=== PATIENT | male | born 1985 | race Caucasian/White ===

== ENCOUNTER 2016-08-23 18:19 | Emergency (ER) | payer MEDICAID ==
[~2016-08-23] VITALS: Ht 195.6 cm; Wt 102.0 kg
[~2016-08-23 18:19] MED LIST: BUPR100T6 PO; BUPR8TAB SL; FLUO20CA19 PO; LEVO100T PO; LISI-170 PO
[2016-08-23 18:47] VITALS: BP 150/99
[2016-08-23] MEDS ORDERED: ACETAMINOPHEN 325 MG TABLET ONE (19:17)
[2016-08-23] MEDS ORDERED: IBUPROFEN 200 MG TABLET ONE (19:17)
[2016-08-23] MEDS ORDERED: IBUPROFEN 200 MG TABLET PO ONE (19:30)
[2016-08-23] MEDS ORDERED: ACETAMINOPHEN 325 MG TABLET PO ONE (19:30)
== END 2016-08-23 20:15 | disposition home or self-care (01) ==
LOC: ED 20:13
DX: F15.10 Other stimulant abuse, uncomplicated (principal); I10 Essential (primary) hypertension; F19.10 Other psychoactive substance abuse, uncomplicated; F41.1 Generalized anxiety disorder; F32.9 Major depressive disorder, single episode, unspecified
CPT/HCPCS: 99283

== ENCOUNTER 2017-01-03 12:52 | Emergency (ER) | payer MEDICAID ==
[~2017-01-03] VITALS: Ht 182.9 cm; Wt 112.7 kg
[2017-01-03 12:55] VITALS: BP 148/93
[2017-01-03] MEDS ORDERED: GABA600T2 PO (13:13)
== END 2017-01-03 14:07 | disposition home or self-care (01) ==
LOC: ED 13:58
DX: R11.2 Nausea with vomiting, unspecified (principal); R50.9 Fever, unspecified
CPT/HCPCS: 99281

== ENCOUNTER 2017-01-16 14:32 | Emergency (ER) | payer MEDICAID ==
[~2017-01-16] VITALS: Ht 195.6 cm; Wt 113.6 kg
[~2017-01-16 14:32] MED LIST changes: +GABA600T2 PO
[2017-01-16 14:35] VITALS: BP 144/97
== END 2017-01-16 15:35 | disposition home or self-care (01) ==
LOC: ED 15:15
DX: F32.9 Major depressive disorder, single episode, unspecified (principal); F41.9 Anxiety disorder, unspecified; G62.9 Polyneuropathy, unspecified; I10 Essential (primary) hypertension; Z76.0 Encounter for issue of repeat prescription
CPT/HCPCS: 99283

== ENCOUNTER 2017-01-27 15:01 | Emergency (ER) | payer MEDICAID ==
[~2017-01-27] VITALS: Ht 193 cm; Wt 111.7 kg
[2017-01-27 15:03] VITALS: BP 146/87
== END 2017-01-27 15:32 | disposition home or self-care (01) ==
LOC: ED 15:29
DX: Z76.0 Encounter for issue of repeat prescription (principal); I10 Essential (primary) hypertension; G62.9 Polyneuropathy, unspecified
CPT/HCPCS: 99283

== ENCOUNTER 2017-06-16 18:49 | Emergency (ER) | payer SELFPAY ==
[~2017-06-16] VITALS: Ht 195.6 cm; Wt 108.7 kg
[2017-06-16 18:54] VITALS: BP 169/122
== END 2017-06-16 21:31 | disposition home or self-care (01) ==
LOC: ED 21:25
DX: F15.10 Other stimulant abuse, uncomplicated (principal); K64.4 Residual hemorrhoidal skin tags; I10 Essential (primary) hypertension; F41.9 Anxiety disorder, unspecified
CPT/HCPCS: 99283; Q0177

== ENCOUNTER 2017-07-13 13:54 | Inpatient (IN) | payer MEDICAID, OTHER ==
[~2017-07-13] VITALS: Ht 195.6 cm; Wt 102.5 kg
[2017-07-13 14:45] LABS: BASOPHILS # (AUTO) 0.05 x10^3/uL (0-0.1); BASOPHILS % (AUTO) 1 % (0-1); EOSINOPHILS # (AUTO) 0.05 x10^3/uL (0-0.4); EOSINOPHILS % (AUTO) 1 % (1-7); LYMPHOCYTES # (AUTO) 2.74 x10^3/uL (1-3.4); LYMPHOCYTES % (AUTO) 29 % (22-44); MD NO; MEAN CORPUSCULAR HEMOGLOBIN 31.8 pg (27.5-34.5); MEAN CORPUSCULAR HGB CONC 33.6 g/dL (33.2-36.2); MEAN CORPUSCULAR VOLUME 94.7 fL (81-97); MEAN PLATELET VOLUME 7.7 fL (7.4-10.4); MONOCYTES # (AUTO) 0.63 x10^3/uL (0.2-0.8); MONOCYTES % (AUTO) 7 % (2-9); NEUTROPHILS # (AUTO) 5.88 x10^3/uL (1.8-6.8); NEUTROPHILS % (AUTO) 63 % (42-75); PLATELET COUNT 476 x10^3/uL (130-400); RED BLOOD COUNT 4.79 x10^6/uL (4.38-5.82); RED CELL DISTRIBUTION WIDTH 14.3 % (9.4-14.8)
[2017-07-13 14:59] LABS: ALBUMIN 4.2 g/dL (3.4-5.0); ANION GAP 10 mmol/L (5-15); CALCIUM 8.8 mg/dL (8.5-10.1); CHLORIDE 99 mmol/L (98-107)
[2017-07-13 15:02] LABS: SALICYLATE LEVEL < 1.7 mg/dL (2.8-20.0)
[2017-07-13 15:03] LABS: ACETAMINOPHEN < 2 mcg/mL (10-30); ALANINE AMINOTRANSFERASE 30 U/L (12-78); ALKALINE PHOSPHATASE 70 U/L (45-117); BILIRUBIN,TOTAL 0.4 mg/dL (0.2-1.0); CREATININE 0.87 mg/dL (0.7-1.3); TOTAL PROTEIN 8.9 g/dL (6.4-8.2)
[2017-07-13 16:01] LABS: AMPHETAMINE SCREEN, URINE Positive (Negative); BARBITURATE SCREEN, URINE Negative (Negative); BENZODIAZEPINE SCREEN, URINE Negative (Negative); CANNABINOID SCREEN, URINE Negative (Negative); COCAINE SCREEN, URINE Negative (Negative); METHADONE SCREEN, URINE Negative (Negative); OPIATE SCREEN, URINE Positive (Negative)
[2017-07-14] MEDS ORDERED: LORazepam 1MG TABLET ONE (11:03)
[2017-07-14] MEDS ORDERED: NICOTINE 21 MG/24 HR PATCH.TD24 ONE (11:03)
[2017-07-14] MEDS: NICOTINE 21 MG/24 HR PATCH.TD24 TD SCH (11:10)
[2017-07-14] MEDS ORDERED: LORazepam 1MG TABLET PO ONE (11:30)
[2017-07-14] MEDS ORDERED: TEMAZEPAM 15 MG CAPSULE PO PRN (12:00)
[2017-07-14] MEDS ORDERED: ONDANSETRON 2MG/ML, 2ML IVPush PRN (12:00)
[2017-07-14] MEDS ORDERED: GUAIFENESIN/DM 200-20MG, 10ML UDC PO PRN (12:00)
[2017-07-14] MEDS ORDERED: LORazepam 2 MG/ML, 1ML IV PRN ×2 (12:00)
[2017-07-14] MEDS ORDERED: hydrALAzine 20 MG/ML, 1ML IVPush PRN (12:00)
[2017-07-14] MEDS ORDERED: DOCUSATE 100 MG CAPSULE PO PRN (12:00)
[2017-07-14] MEDS ORDERED: LORazepam 0.5MG TABLET PO PRN (12:00)
[2017-07-14] MEDS ORDERED: LORazepam 1MG TABLET PO PRN (12:00)
[2017-07-14] MEDS ORDERED: LISINOPRIL 20 MG TABLET ONE (12:14)
[2017-07-14] MEDS: LISINOPRIL 20 MG TABLET PO SCH (12:33)
[2017-07-14] MEDS ORDERED: LORazepam 2 MG/ML, 1ML ONE ×2 (14:19→20:57)
[2017-07-14] MEDS ORDERED: ENOXAPARIN 40 MG/0.4 ML ONE (14:20)
[2017-07-14] MEDS: ENOXAPARIN 40 MG/0.4 ML SQ SCH (14:23)
[2017-07-14] MEDS: LORazepam 2 MG/ML, 1ML IV PRN ×3 (14:24→22:07)
[2017-07-14] MEDS: POTASSIUM CHLORIDE 20 MEQ, MAGNESIUM SULFATE 2 GM, THIAMINE 100 MG, MVI ADULT 10 ML, FO... IV SCH (14:24)
[2017-07-14] MEDS: FLUOXETINE HCL 20 MG CAPSULE PO SCH ×2 (14:25→22:07)
[2017-07-14 21:18] VITALS: BP 136/87
[2017-07-14 21:27] VITALS: BP 136/87
[2017-07-15 00:59] VITALS: BP 136/81
[2017-07-15] MEDS: LORazepam 2 MG/ML, 1ML IV PRN (02:53)
[2017-07-15 05:16] LABS: BASOPHILS # (AUTO) 0.03 x10^3/uL (0-0.1); BASOPHILS % (AUTO) 0 % (0-1); EOSINOPHILS # (AUTO) 0.02 x10^3/uL (0-0.4); EOSINOPHILS % (AUTO) 0 % (1-7); LYMPHOCYTES # (AUTO) 1.59 x10^3/uL (1-3.4); LYMPHOCYTES % (AUTO) 18 % (22-44); MD NO; MEAN CORPUSCULAR HGB CONC 33.9 g/dL (33.2-36.2); MEAN CORPUSCULAR VOLUME 94.4 fL (81-97); MEAN PLATELET VOLUME 7.9 fL (7.4-10.4); MONOCYTES # (AUTO) 0.87 x10^3/uL (0.2-0.8); MONOCYTES % (AUTO) 10 % (2-9); NEUTROPHILS % (AUTO) 71 % (42-75); PLATELET COUNT 427 x10^3/uL (130-400); RED CELL DISTRIBUTION WIDTH 14.1 % (9.4-14.8)
[2017-07-15 05:26] LABS: ALBUMIN 3.2 g/dL (3.4-5.0); ANION GAP 11 mmol/L (5-15); CALCIUM 8.5 mg/dL (8.5-10.1); CHLORIDE 109 mmol/L (98-107)
[2017-07-15 05:29] LABS: ALANINE AMINOTRANSFERASE 22 U/L (12-78); ALKALINE PHOSPHATASE 55 U/L (45-117); BILIRUBIN,TOTAL 0.4 mg/dL (0.2-1.0); CREATININE 0.84 mg/dL (0.7-1.3); TOTAL PROTEIN 7.2 g/dL (6.4-8.2)
[2017-07-15 08:21] VITALS: BP 132/87
[2017-07-15] MEDS: LEVOTHYROXINE 100 MCG TABLET PO SCH (09:06)
[2017-07-15] MEDS: NICOTINE 21 MG/24 HR PATCH.TD24 TD SCH (09:07)
[2017-07-15] MEDS: FLUOXETINE HCL 20 MG CAPSULE PO SCH ×2 (09:07→20:34)
[2017-07-15] MEDS: CHLORDIAZEPOXIDE 25 MG CAPSULE PO SCH ×3 (09:07→20:33)
[2017-07-15] MEDS: LISINOPRIL 20 MG TABLET PO SCH (09:07)
[2017-07-15] MEDS ORDERED: BUPR300T49 PO (09:20)
[2017-07-15] MEDS ORDERED: GABA600T2 PO (09:20)
[2017-07-15 10:40] VITALS: BP 121/81
[2017-07-15] MEDS: LORazepam 2 MG/ML, 1ML IVPush PRN ×5 (10:42→20:33)
[2017-07-15 12:38] VITALS: BP 124/64
[2017-07-15] MEDS ORDERED: OXYcodone IR 5MG TABLET PO PRN (14:30)
[2017-07-15] MEDS: GABAPENTIN 300 MG CAPSULE PO SCH ×2 (14:58→20:33)
[2017-07-15] MEDS: ENOXAPARIN 40 MG/0.4 ML SQ SCH (14:59)
[2017-07-15] MEDS: POTASSIUM CHLORIDE 20 MEQ, MAGNESIUM SULFATE 2 GM, THIAMINE 100 MG, MVI ADULT 10 ML, FO... IV SCH (14:59)
[2017-07-15] MEDS ORDERED: ACETAMINOPHEN 325 MG TABLET PO PRN (15:00)
[2017-07-15 20:22] VITALS: BP 151/75
[2017-07-15] MEDS: BUPROPION 100 MG TABLET PO SCH (20:34)
[2017-07-16 02:24] VITALS: BP 135/100
[2017-07-16 08:30] VITALS: BP 128/82
[2017-07-16] MEDS: LEVOTHYROXINE 100 MCG TABLET PO SCH (09:24)
[2017-07-16] MEDS: LISINOPRIL 20 MG TABLET PO SCH (09:24)
[2017-07-16] MEDS: BUPROPION 100 MG TABLET PO SCH ×2 (09:24→20:18)
[2017-07-16] MEDS: CHLORDIAZEPOXIDE 25 MG CAPSULE PO SCH ×2 (09:24→17:14)
[2017-07-16] MEDS: GABAPENTIN 300 MG CAPSULE PO SCH ×3 (09:24→20:18)
[2017-07-16] MEDS: FLUOXETINE HCL 20 MG CAPSULE PO SCH ×2 (09:24→20:18)
[2017-07-16] MEDS: NICOTINE 21 MG/24 HR PATCH.TD24 TD SCH (09:24)
[2017-07-16] MEDS: LORazepam 2 MG/ML, 1ML IVPush PRN ×5 (09:31→23:07)
[2017-07-16 14:30] VITALS: BP 129/80
[2017-07-16] MEDS: POTASSIUM CHLORIDE 20 MEQ, MAGNESIUM SULFATE 2 GM, THIAMINE 100 MG, MVI ADULT 10 ML, FO... IV SCH (14:43)
[2017-07-16] MEDS: ENOXAPARIN 40 MG/0.4 ML SQ SCH (14:44)
[2017-07-16] MEDS ORDERED: BUPRENORPHINE/NALOXONE 2-0.5MG SL ONE (19:30)
[2017-07-16] MEDS ORDERED: BUPRENORPHINE/NALOXONE 8-2MG SL ONE (19:30)
[2017-07-16 19:54] VITALS: BP 132/81
[2017-07-16 21:14] VITALS: BP 127/79
[2017-07-17 02:00] VITALS: BP 158/85
[2017-07-17] MEDS: LEVOTHYROXINE 100 MCG TABLET PO SCH (06:11)
[2017-07-17] MEDS: LORazepam 2 MG/ML, 1ML IVPush PRN ×4 (06:12→21:16)
[2017-07-17 09:50] VITALS: BP 120/73
[2017-07-17] MEDS: NICOTINE 21 MG/24 HR PATCH.TD24 TD SCH (10:00)
[2017-07-17] MEDS: FLUOXETINE HCL 20 MG CAPSULE PO SCH ×2 (10:00→21:16)
[2017-07-17] MEDS: LISINOPRIL 20 MG TABLET PO SCH (10:00)
[2017-07-17] MEDS: BUPROPION 100 MG TABLET PO SCH ×2 (10:00→21:16)
[2017-07-17] MEDS: GABAPENTIN 300 MG CAPSULE PO SCH ×3 (10:00→21:16)
[2017-07-17] MEDS ORDERED: BUPRENORPHINE/NALOXONE 8-2MG SL ONE (15:30)
[2017-07-17] MEDS ORDERED: BUPRENORPHINE/NALOXONE 2-0.5MG SL ONE (16:00)
[2017-07-17] MEDS: ENOXAPARIN 40 MG/0.4 ML SQ SCH (16:17)
[2017-07-17] MEDS: THIAMINE 100MG TABLET PO SCH (16:18)
[2017-07-17] MEDS: FOLIC ACID 1 MG TABLET PO SCH (16:19)
[2017-07-17 16:20] VITALS: BP 128/69
[2017-07-17 20:07] VITALS: BP 114/70
[2017-07-18 01:50] VITALS: BP 117/67
[2017-07-18] MEDS: LORazepam 2 MG/ML, 1ML IVPush PRN ×2 (03:21→09:38)
[2017-07-18] MEDS: LEVOTHYROXINE 100 MCG TABLET PO SCH (04:53)
[2017-07-18 06:50] VITALS: BP 118/76
[2017-07-18] MEDS: FLUOXETINE HCL 20 MG CAPSULE PO SCH ×2 (09:37→20:06)
[2017-07-18] MEDS: GABAPENTIN 300 MG CAPSULE PO SCH ×3 (09:37→20:06)
[2017-07-18] MEDS: BUPROPION 100 MG TABLET PO SCH ×2 (09:37→20:07)
[2017-07-18] MEDS: LISINOPRIL 20 MG TABLET PO SCH (09:38)
[2017-07-18] MEDS: NICOTINE 21 MG/24 HR PATCH.TD24 TD SCH (09:38)
[2017-07-18] MEDS: LORazepam 1MG TABLET PO PRN ×2 (12:48→18:28)
[2017-07-18] MEDS: ENOXAPARIN 40 MG/0.4 ML SQ SCH (14:01)
[2017-07-18] MEDS: FOLIC ACID 1 MG TABLET PO SCH (14:56)
[2017-07-18] MEDS: THIAMINE 100MG TABLET PO SCH (14:56)
[2017-07-18] MEDS ORDERED: BUPRENORPHINE/NALOXONE 2-0.5MG SL SCH (18:00)
[2017-07-18 21:14] VITALS: BP 127/75
[2017-07-18] MEDS: TRAZODONE 50MG TABLET PO PRN (22:04)
[2017-07-19] MEDS: LEVOTHYROXINE 100 MCG TABLET PO SCH (07:00)
[2017-07-19 07:53] VITALS: BP 105/67
[2017-07-19] MEDS: LORazepam 1MG TABLET PO PRN ×3 (08:00→21:03)
[2017-07-19] MEDS: FLUOXETINE HCL 20 MG CAPSULE PO SCH ×2 (08:00→21:03)
[2017-07-19] MEDS: THIAMINE 100MG TABLET PO SCH (08:00)
[2017-07-19] MEDS: FOLIC ACID 1 MG TABLET PO SCH (08:00)
[2017-07-19] MEDS: NICOTINE 21 MG/24 HR PATCH.TD24 TD SCH (08:01)
[2017-07-19] MEDS: GABAPENTIN 300 MG CAPSULE PO SCH ×3 (08:01→21:01)
[2017-07-19] MEDS: BUPROPION 100 MG TABLET PO SCH ×2 (08:01→21:02)
[2017-07-19] MEDS: LISINOPRIL 20 MG TABLET PO SCH (08:01)
[2017-07-19] MEDS ORDERED: BUPRENORPHINE/NALOXONE 2-0.5MG SL SCH (10:00)
[2017-07-19] MEDS: ENOXAPARIN 40 MG/0.4 ML SQ SCH (14:30)
[2017-07-19 21:01] VITALS: BP 138/62
[2017-07-19] MEDS: TRAZODONE 50MG TABLET PO PRN (21:02)
[2017-07-20] MEDS: LORazepam 1MG TABLET PO PRN ×2 (04:52→10:53)
[2017-07-20] MEDS: LEVOTHYROXINE 100 MCG TABLET PO SCH (04:52)
[2017-07-20 08:42] VITALS: BP 118/65
[2017-07-20] MEDS ORDERED: FOLIC ACID 1 MG TABLET PO SCH (09:00)
[2017-07-20] MEDS ORDERED: THIAMINE 100MG TABLET PO SCH (09:00)
[2017-07-20] MEDS: GABAPENTIN 300 MG CAPSULE PO SCH ×2 (09:07→16:35)
[2017-07-20] MEDS: BUPROPION 100 MG TABLET PO SCH (09:07)
[2017-07-20] MEDS: NICOTINE 21 MG/24 HR PATCH.TD24 TD SCH (09:07)
[2017-07-20] MEDS: LISINOPRIL 20 MG TABLET PO SCH (09:08)
[2017-07-20] MEDS: FLUOXETINE HCL 20 MG CAPSULE PO SCH (09:08)
[2017-07-20] MEDS: ENOXAPARIN 40 MG/0.4 ML SQ SCH (14:30)
== END 2017-07-20 18:33 | disposition home or self-care (01) | DRG 897 ==
LOC: ED 17:01 → EDIP 17:49 → OBSVTOIN 07-14 13:01 → 5SO 07-14 22:01 → 4WST 07-16 20:57 → 3E 07-18 10:19
PROVIDERS: ADMIT Hospitalist; ATTEND Hospitalist
PROC: HZ2ZZZZ Detoxification Services for Substance Abuse Treatment (ICD-10-PCS; principal; 2017-07-14)
DX: F10.239 Alcohol dependence with withdrawal, unspecified (principal); F11.23 Opioid dependence with withdrawal; R45.851 Suicidal ideations; R56.9 Unspecified convulsions; E03.9 Hypothyroidism, unspecified; F15.90 Other stimulant use, unspecified, uncomplicated; F17.210 Nicotine dependence, cigarettes, uncomplicated; F32.9 Major depressive disorder, single episode, unspecified; F41.1 Generalized anxiety disorder; I10 Essential (primary) hypertension; Z59.0 Homelessness; Z90.89 Acquired absence of other organs
CPT/HCPCS: 36415; 80053; 80074; 80307; 80329; 83735; 84100; 84443; 85025; 87040; 87806; 93306; 96365; 96366; 96372; G0378; J1650; J2405; J3411; J3475; J3480; J7042; G0475; G0480; J2060

== ENCOUNTER 2018-01-25 04:57 | Emergency (ER) | payer MEDICAID ==
[~2018-01-25] VITALS: Ht 193 cm; Wt 101.0 kg
[~2018-01-25 04:57] MED LIST changes: +BUPR300T49 PO
[2018-01-25 05:00] VITALS: BP 139/72
[2018-01-25] MEDS ORDERED: IBUPROFEN 200 MG TABLET ONE (05:54)
[2018-01-25] MEDS ORDERED: DIPH,PERTUSS(ACELL),TET VAC/PF 0.5 ML IM-VACC ONE ×2 (05:54→06:00)
[2018-01-25] MEDS ORDERED: IBUPROFEN 200 MG TABLET PO ONE (06:00)
[2018-01-25 06:13] LABS: ALANINE AMINOTRANSFERASE 28 U/L (12-78); ALBUMIN 3.9 g/dL (3.4-5.0); ANION GAP 11 mmol/L (5-15); CALCIUM 8.9 mg/dL (8.5-10.1); CHLORIDE 104 mmol/L (98-107); CREATININE 0.92 mg/dL (0.7-1.3)
[2018-01-25 06:15] LABS: ALKALINE PHOSPHATASE 56 U/L (45-117); BILIRUBIN,TOTAL 1.1 mg/dL (0.2-1.0); TOTAL PROTEIN 7.7 g/dL (6.4-8.2)
[2018-01-25] MEDS ORDERED: BACITRACIN ZINC OINT 500U/GM, 0.9 GM ONE (06:17)
== END 2018-01-25 07:14 | disposition home or self-care (01) ==
LOC: ED 07:00
DX: S90.822A Blister (nonthermal), left foot, initial encounter (principal); S90.821A Blister (nonthermal), right foot, initial encounter; L03.115 Cellulitis of right lower limb; L03.116 Cellulitis of left lower limb; F10.20 Alcohol dependence, uncomplicated; I10 Essential (primary) hypertension; Z59.0 Homelessness; X58.XXXA Exposure to other specified factors, initial encounter; Y93.01 Activity, walking, marching and hiking; Y92.488 Other paved roadways as the place of occurrence of the external cause; Y99.8 Other external cause status
CPT/HCPCS: 36415; 80053; 90471; 90715; 99283

== ENCOUNTER 2018-05-28 14:55 | Observation (INO) | payer MEDICAID ==
[~2018-05-28] VITALS: Ht 193 cm; Wt 110.2 kg
[~2018-05-28 14:55] MED LIST changes: -GABA600T2 PO; +GABA600T7 PO
--- NOTE | 2018-05-28 15:11 | NUR ---
PT AMBULATED INDEPENDENTLY TO [facility] SECURED ED ROOM 39, ALL BELONGINGS BEING SECURED & PT CHANGING INTO GOWN. PHLEMBOTOMY AT BEDSIDE TO COLLECT BLOOD, PT TO PROVIDE UA, RN ORDERING MEAL TRAY FOR PT, NO OTHER NEEDS AT THIS TIME, CARIDAD.
--- NOTE | 2018-05-28 15:18 | NUR ---
PT BELONGINGS STORED IN LOCKER; 1 CAMO BACKPACK, 1 TEAL DUFFLE BAG, 3 PT BELONGING BAGS. PT DECLINED HAVING ANYTHING LOCKED UP W/ SECURITY. PT HAS HIS GLASSES WITH HIM.
--- NOTE | 2018-05-28 15:22 | NUR ---
JULIETTE TO LAB AT THIS TIME
[2018-05-28 15:24] LABS: BASOPHILS # (AUTO) 0.03 x10^3/uL (0-0.1); BASOPHILS % (AUTO) 1 % (0-1); EOSINOPHILS # (AUTO) 0.09 x10^3/uL (0-0.4); EOSINOPHILS % (AUTO) 2 % (1-7); LYMPHOCYTES # (AUTO) 1.32 x10^3/uL (1-3.4); LYMPHOCYTES % (AUTO) 24 % (22-44); MD NO; MEAN CORPUSCULAR HEMOGLOBIN 32.5 pg (27.5-34.5); MEAN CORPUSCULAR HGB CONC 34.5 g/dL (33.2-36.2); MEAN CORPUSCULAR VOLUME 94.3 fL (81-97); MEAN PLATELET VOLUME 7.9 fL (7.4-10.4); MONOCYTES # (AUTO) 0.65 x10^3/uL (0.2-0.8); MONOCYTES % (AUTO) 12 % (2-9); NEUTROPHILS # (AUTO) 3.47 x10^3/uL (1.8-6.8); NEUTROPHILS % (AUTO) 62 % (42-75); PLATELET COUNT 325 x10^3/uL (130-400); RED BLOOD COUNT 4.23 x10^6/uL (4.38-5.82); RED CELL DISTRIBUTION WIDTH 14.5 % (9.4-14.8)
[2018-05-28 15:34] LABS: ALANINE AMINOTRANSFERASE 49 U/L (12-78); ALBUMIN 3.5 g/dL (3.4-5.0); ANION GAP 7 mmol/L (5-15); CALCIUM 8.5 mg/dL (8.5-10.1); CHLORIDE 106 mmol/L (98-107)
[2018-05-28 15:36] LABS: ALKALINE PHOSPHATASE 46 U/L (45-117); BILIRUBIN,TOTAL 0.2 mg/dL (0.2-1.0); CREATININE 0.85 mg/dL (0.7-1.3)
[2018-05-28 15:37] LABS: SALICYLATE LEVEL < 1.7 mg/dL (2.8-20.0)
[2018-05-28 15:39] LABS: ACETAMINOPHEN < 2 mcg/mL (10-30)
[2018-05-28 15:44] LABS: AMPHETAMINE SCREEN, URINE Negative (Negative); BARBITURATE SCREEN, URINE Negative (Negative); BENZODIAZEPINE SCREEN, URINE Negative (Negative); CANNABINOID SCREEN, URINE Positive (Negative); COCAINE SCREEN, URINE Negative (Negative); METHADONE SCREEN, URINE Negative (Negative); OPIATE SCREEN, URINE Positive (Negative)
--- NOTE | 2018-05-28 15:50 | NUR ---
PT GIVEN MEAL TRAY, SITTER AT DOORWAY, NAD, NO NEEDS AT THIS TIME
--- NOTE | 2018-05-28 16:35 | NUR ---
REGISTRATION CALLED TO REQUEST FULL REG ON PT FOR TELEPSYCH CONSULT.
--- NOTE | 2018-05-28 17:05 | NUR ---
[facility] called and chart faxed.
--- NOTE | 2018-05-28 18:04 | NUR ---
[facility] has been at bedside to assess pt
[2018-05-28] MEDS ORDERED: ONDANSETRON ODT 4 MG PO PRN (18:30)
[2018-05-28] MEDS ORDERED: ACETAMINOPHEN 325 MG TABLET PO PRN (18:30)
[2018-05-28] MEDS ORDERED: ZIPRASIDONE 20 MG INJ IM PRN (18:30)
[2018-05-28] MEDS ORDERED: DIPHENHYDRAMINE 50 MG CAPSULE PO PRN (18:30)
--- NOTE | 2018-05-28 19:10 | NUR ---
REPORT RECEIVED FROM MALKA DUNN. MEAL TRAY CONSUMED 100%. PT RESTING ON GURNEY, RESPS EVEN AND UNLABORED. . PT DENIES ANY NEEDS. SITTER MONITORING FROM [facility] FOR SAFETY. ROOM SECURE. AWAITING BED ASSIGNMENT AND TRANSPORT TO AT THIS TIME.
--- NOTE | 2018-05-28 19:15 | NUR ---
REPORT TO MARTHA MCNALLY.
--- NOTE | 2018-05-28 19:34 | NUR ---
TASK RN: SI COMPLIANT MEAL TRAY PROVIDED. PT CALM AND COOPERATIVE. ROOM SECURE. SITTER AT DOORWAY FOR OBS
--- NOTE | 2018-05-28 20:01 | NUR ---
REPORT RECEIVED FROM MARTHA MCNALLY.
[2018-05-28] MEDS ORDERED: TRAZ50TA66 PO (20:21)
--- NOTE | 2018-05-28 20:25 | NUR ---
PT UP TO BATHROOM TO VOID, GAIT STEADY. PT BACK TO ROOM. NADN .
--- NOTE | 2018-05-28 20:42 | NUR ---
REPORT CALLED TO Tamanna HEATH PT AWAITING TRANSPORT TO ROOM 262. Addendum: 05/28/18 at 2043 paul POTTER REPORT CALLED TO Tamanna HEATH PT AWAITING TRANSPORT TO ROOM 264.
--- NOTE | 2018-05-28 20:56 | NUR ---
PT TRANSPORTED TO ROOM 264 BY EDT. RICHARDS AT TRANSPORT.
[2018-05-28 21:04] VITALS: BP 146/88
[2018-05-28] MEDS: FLUOXETINE HCL 20 MG CAPSULE PO SCH (21:12)
[2018-05-28] MEDS: GABAPENTIN 300 MG CAPSULE PO SCH (21:12)
[2018-05-29] MEDS: LEVOTHYROXINE 100 MCG TABLET PO SCH (07:57)
[2018-05-29 08:00] VITALS: BP 154/88
[2018-05-29] MEDS ORDERED: LORazepam 0.5MG TABLET PO PRN ×2 (08:00→17:00)
[2018-05-29] MEDS: GABAPENTIN 300 MG CAPSULE PO SCH ×3 (08:11→20:31)
[2018-05-29] MEDS: FLUOXETINE HCL 20 MG CAPSULE PO SCH ×2 (08:12→20:31)
[2018-05-29] MEDS: LISINOPRIL 20 MG TABLET PO SCH (08:12)
[2018-05-29] MEDS: SENNA/DOCUSATE TABLET PO SCH (08:16)
[2018-05-29] MEDS ORDERED: TEMPLATE NON-FORMULARY MED. (Bupropion Hcl** (Wellbutrin Xl**) 300 MG) PO SCH (09:00)
[2018-05-29 17:23] VITALS: BP 145/88
[2018-05-29 19:56] VITALS: BP 144/84
[2018-05-29] MEDS: LORazepam 1MG TABLET PO PRN (20:31)
[2018-05-30] MEDS: LEVOTHYROXINE 100 MCG TABLET PO SCH (06:20)
[2018-05-30 07:00] VITALS: BP 142/92
[2018-05-30] MEDS: LORazepam 1MG TABLET PO PRN ×3 (08:12→21:45)
[2018-05-30] MEDS: LISINOPRIL 20 MG TABLET PO SCH (08:13)
[2018-05-30] MEDS: FLUOXETINE HCL 20 MG CAPSULE PO SCH ×2 (08:13→21:31)
[2018-05-30] MEDS: GABAPENTIN 300 MG CAPSULE PO SCH ×3 (08:14→21:32)
[2018-05-30] MEDS: SENNA/DOCUSATE TABLET PO SCH (08:18)
[2018-05-30] MEDS: BUPROPION SR 150 MG TABLET PO SCH ×2 (10:44→21:32)
[2018-05-30 15:11] VITALS: BP 134/84
[2018-05-30] MEDS: ZIPRASIDONE 20MG CAPSULE PO PRN ×2 (15:13→21:45)
[2018-05-30 19:24] VITALS: BP 134/85
[2018-05-31] MEDS: LEVOTHYROXINE 100 MCG TABLET PO SCH (07:30)
[2018-05-31 07:46] VITALS: BP 136/82
[2018-05-31] MEDS ORDERED: LEVOTHYROXINE 50 MCG TABLET ONE (08:05)
[2018-05-31] MEDS: FLUOXETINE HCL 20 MG CAPSULE PO SCH (08:06)
[2018-05-31] MEDS: GABAPENTIN 300 MG CAPSULE PO SCH ×2 (08:06→15:45)
[2018-05-31] MEDS: LISINOPRIL 20 MG TABLET PO SCH (08:07)
[2018-05-31] MEDS: BUPROPION SR 150 MG TABLET PO SCH (08:07)
[2018-05-31] MEDS: SENNA/DOCUSATE TABLET PO SCH (08:07)
[2018-05-31] MEDS: LORazepam 1MG TABLET PO PRN ×2 (10:14→17:26)
[2018-05-31] MEDS: ZIPRASIDONE 20MG CAPSULE PO PRN (14:10)
== END 2018-05-31 18:10 ==
LOC: ED 16:36 → SUATTDRO 18:24 → EDIP 18:59 → 2N 20:59
PROVIDERS: ADMIT Family Medicine; ATTEND Family Medicine
DX: R45.851 Suicidal ideations (principal); F32.9 Major depressive disorder, single episode, unspecified; I10 Essential (primary) hypertension; E03.9 Hypothyroidism, unspecified; F10.10 Alcohol abuse, uncomplicated; F13.239 Sedative, hypnotic or anxiolytic dependence with withdrawal, unspecified; F41.1 Generalized anxiety disorder
CPT/HCPCS: 36415; 80053; 80307; 80329; 85025; 99284; G0378; Q0177; G0480

== ENCOUNTER 2019-10-04 08:19 | Inpatient (IN) | payer MEDICAID ==
[~2019-10-04] VITALS: Ht 193 cm; Wt 104.6 kg
[~2019-10-04 08:19] MED LIST changes: +TRAZ50TA66 PO
--- NOTE | 2019-10-04 08:52 | NUR ---
PT WITH C/O SWELLING AND PAIN TO LLE INCLUDING FOOT AND CALF. SOME NOTED SWELLING TO R CALF WELL. PT DENIES TRAUMA. PT STATES HE WENT TO [place] RECENTLY AND THEY HAD DONE FILMS, NO FRACTURE NOTED. PT STATES IT HURTS TO WALK AND HE IS HOMELESS SO NEEDS TO BE ABLE TO AMBULATE. 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 CMS INTACT, PT TO BP, CONT PULSE OX
[2019-10-04] MEDS: SODIUM CHLORIDE 0.9% 1,000ML IVBOLUS ONE ×2 (09:30→11:41)
[2019-10-04] MEDS ORDERED: VANCOMYCIN PER PHARMACY MC ONE (09:30)
[2019-10-04] MEDS ORDERED: VANCOMYCIN 2,500 MG in SODIUM CHLORIDE 0.9% 500 ML IV ONE (09:30)
[2019-10-04] MEDS ORDERED: PHARMACY MAY ADJ FOR RENAL FX MC PRN (09:30)
--- NOTE | 2019-10-04 09:30 | NUR ---
PIV INITIATED, BC DRAWN AND SENT TO LAB.
[2019-10-04 09:56] LABS: ALANINE AMINOTRANSFERASE 51 U/L (12-78); ALBUMIN 2.8 g/dL (3.4-5.0); ANION GAP 7 mmol/L (5-15); CALCIUM 8.6 mg/dL (8.5-10.1); CHLORIDE 103 mmol/L (98-107); CREATININE 0.71 mg/dL (0.7-1.3)
[2019-10-04 09:58] LABS: ALKALINE PHOSPHATASE 55 U/L (45-117); BILIRUBIN,TOTAL 0.4 mg/dL (0.2-1.0); TOTAL PROTEIN 7.5 g/dL (6.4-8.2)
[2019-10-04 10:22] LABS: BASOPHILS # (AUTO) 0.07 x10^3/uL (0-0.1); BASOPHILS % (AUTO) 1 % (0-1); EOSINOPHILS # (AUTO) 0.06 x10^3/uL (0-0.4); EOSINOPHILS % (AUTO) 1 % (1-7); LYMPHOCYTES # (AUTO) 1.89 x10^3/uL (1-3.4); LYMPHOCYTES % (AUTO) 20 % (22-44); MD NO; MEAN CORPUSCULAR HEMOGLOBIN 31.2 pg (27.5-34.5); MEAN CORPUSCULAR HGB CONC 33.1 g/dL (33.2-36.2); MEAN CORPUSCULAR VOLUME 94.3 fL (81-97); MEAN PLATELET VOLUME 7.6 fL (7.4-10.4); MONOCYTES # (AUTO) 0.85 x10^3/uL (0.2-0.8); MONOCYTES % (AUTO) 9 % (2-9); NEUTROPHILS # (AUTO) 6.68 x10^3/uL (1.8-6.8); NEUTROPHILS % (AUTO) 70 % (42-75); PLATELET COUNT 267 x10^3/uL (130-400); RED BLOOD COUNT 3.64 x10^6/uL (4.38-5.82); RED CELL DISTRIBUTION WIDTH 12.6 % (9.4-14.8)
[2019-10-04] MEDS ORDERED: AMPICILLIN/SULBACTAM 3 GM in SODIUM CHLORIDE 0.9% 100 ML IV ONE (10:30)
[2019-10-04 12:42] VITALS: BP 153/95
[2019-10-04] MEDS ORDERED: FLUO40CA2 PO (13:10)
[2019-10-04] MEDS: HYDROcodone/APAP 5/325 TABLET PO PRN ×3 (13:14→22:27)
[2019-10-04] MEDS ORDERED: ONDANSETRON ODT 4 MG PO PRN (13:30)
[2019-10-04] MEDS ORDERED: BISACODYL 10 MG SUPP PR PRN (13:30)
[2019-10-04] MEDS ORDERED: ACETAMINOPHEN 325 MG TABLET PO PRN (13:30)
[2019-10-04] MEDS ORDERED: VANCOMYCIN PER PHARMACY MC PRN (13:30)
[2019-10-04] MEDS ORDERED: ONDANSETRON 2MG/ML, 2ML IVPush PRN (13:30)
[2019-10-04] MEDS ORDERED: HYDROmorphone 2 MG/ML, 1ML IVPush PRN (13:30)
[2019-10-04] MEDS ORDERED: hydrALAzine 20 MG/ML, 1ML IVPush PRN (13:30)
[2019-10-04] MEDS ORDERED: POLYETHYLENE GLYCOL 17 GM PACKET PO PRN (13:30)
[2019-10-04] MEDS ORDERED: LORazepam 2 MG/ML, 1ML IV PRN ×2 (13:30)
[2019-10-04] MEDS: LORazepam 2 MG/ML, 1ML IV PRN (14:50)
[2019-10-04] MEDS ORDERED: PHARMACOKINETIC MONITORING MC PRN (15:00)
[2019-10-04] MEDS ORDERED: GADOTERATE 7.5 MMOL/15 ML SYR ONE (15:04)
[2019-10-04] MEDS: LACTATED RINGERS 1,000 ML IV SCH (15:40)
[2019-10-04] MEDS: NICOTINE 14MG/24 HR PATCH.TD24 TD SCH (15:41)
[2019-10-04] MEDS: ENOXAPARIN 40 MG/0.4 ML SQ SCH (15:41)
[2019-10-04] MEDS: LORazepam 0.5MG TABLET PO SCH ×2 (15:41→20:17)
[2019-10-04] MEDS: GABAPENTIN 300 MG CAPSULE PO SCH ×2 (15:42→20:17)
[2019-10-04] MEDS: PIPERACILLIN/TAZO/PMX 3.375GM 50 ML IV SCH ×2 (15:46→21:36)
[2019-10-04] MEDS ORDERED: LORazepam 1MG TABLET PO SCH (16:00)
[2019-10-04 16:33] LABS: HCT (SEDRATE) 37.2 % (39.2-51.8)
[2019-10-04 19:48] VITALS: BP 156/99
[2019-10-04] MEDS: FAMOTIDINE 20 MG TABLET PO SCH (20:17)
[2019-10-04] MEDS: VANCOMYCIN 2,000 MG in SODIUM CHLORIDE 0.9% 500 ML IV SCH (22:18)
[2019-10-05 00:35] VITALS: BP 138/90
[2019-10-05] MEDS: PIPERACILLIN/TAZO/PMX 3.375GM 50 ML IV SCH ×4 (03:12→20:53)
[2019-10-05] MEDS: LEVOTHYROXINE 100 MCG TABLET PO SCH (05:09)
[2019-10-05] MEDS: LORazepam 2 MG/ML, 1ML IV PRN ×4 (05:10→23:25)
[2019-10-05 05:44] LABS: ALBUMIN 2.6 g/dL (3.4-5.0); ANION GAP 7 mmol/L (5-15); CALCIUM 8.5 mg/dL (8.5-10.1); CHLORIDE 111 mmol/L (98-107)
[2019-10-05 05:57] LABS: ALANINE AMINOTRANSFERASE 53 U/L (12-78); ALKALINE PHOSPHATASE 54 U/L (45-117); BILIRUBIN,TOTAL 0.5 mg/dL (0.2-1.0); CREATININE 0.74 mg/dL (0.7-1.3); TOTAL PROTEIN 7.5 g/dL (6.4-8.2)
[2019-10-05 07:45] VITALS: BP 145/88
[2019-10-05 08:03] LABS: MEAN CORPUSCULAR HEMOGLOBIN 31.5 pg (27.5-34.5); MEAN CORPUSCULAR HGB CONC 33.1 g/dL (33.2-36.2); MEAN CORPUSCULAR VOLUME 95.1 fL (81-97); RED BLOOD COUNT 4.11 x10^6/uL (4.38-5.82); RED CELL DISTRIBUTION WIDTH 12.9 % (9.4-14.8)
[2019-10-05 08:04] LABS: MEAN PLATELET VOLUME 6.6 fL (7.4-10.4); PLATELET COUNT 371 x10^3/uL (130-400)
[2019-10-05 08:05] LABS: BASOPHILS # (AUTO) 0.04 x10^3/uL (0-0.1); BASOPHILS % (AUTO) 1 % (0-1); EOSINOPHILS # (AUTO) 0.05 x10^3/uL (0-0.4); EOSINOPHILS % (AUTO) 1 % (1-7); LYMPHOCYTES # (AUTO) 1.36 x10^3/uL (1-3.4); LYMPHOCYTES % (AUTO) 19 % (22-44); MD SCAN; MONOCYTES # (AUTO) 0.67 x10^3/uL (0.2-0.8); MONOCYTES % (AUTO) 9 % (2-9); NEUTROPHILS # (AUTO) 5.23 x10^3/uL (1.8-6.8); NEUTROPHILS % (AUTO) 71 % (42-75)
[2019-10-05] MEDS: BUPROPION SR 150 MG TABLET PO SCH (09:11)
[2019-10-05] MEDS: LISINOPRIL 10 MG TABLET PO SCH (09:11)
[2019-10-05] MEDS: FLUOXETINE HCL 20 MG CAPSULE PO SCH (09:11)
[2019-10-05] MEDS: GABAPENTIN 300 MG CAPSULE PO SCH ×3 (09:11→20:53)
[2019-10-05] MEDS: MULTIVITAMINS/MINERALS TABLET PO SCH (09:12)
[2019-10-05] MEDS: SENNA/DOCUSATE TABLET PO SCH (09:12)
[2019-10-05] MEDS: FAMOTIDINE 20 MG TABLET PO SCH ×2 (09:12→20:54)
[2019-10-05] MEDS: LORazepam 0.5MG TABLET PO SCH ×3 (09:12→20:53)
[2019-10-05] MEDS: LACTATED RINGERS 1,000 ML IV SCH (11:24)
[2019-10-05] MEDS: VANCOMYCIN 2,000 MG in SODIUM CHLORIDE 0.9% 500 ML IV SCH ×2 (11:24→23:25)
[2019-10-05 14:20] VITALS: BP 147/86
[2019-10-05] MEDS: FOLIC ACID 1 MG TABLET PO SCH (16:00)
[2019-10-05] MEDS: NICOTINE 14MG/24 HR PATCH.TD24 TD SCH (16:00)
[2019-10-05] MEDS: THIAMINE 100MG TABLET PO SCH (16:00)
[2019-10-05] MEDS: ENOXAPARIN 40 MG/0.4 ML SQ SCH (16:01)
[2019-10-05] MEDS: HYDROcodone/APAP 5/325 TABLET PO PRN ×2 (16:08→22:36)
[2019-10-05 19:13] LABS: AMPHETAMINE SCREEN, URINE Positive (Negative); BARBITURATE SCREEN, URINE Negative (Negative); BENZODIAZEPINE SCREEN, URINE Negative (Negative); CANNABINOID SCREEN, URINE Positive (Negative); COCAINE SCREEN, URINE Negative (Negative); METHADONE SCREEN, URINE Negative (Negative); OPIATE SCREEN, URINE Positive (Negative)
[2019-10-05 20:08] VITALS: BP 150/87
[2019-10-05] MEDS: TRAZODONE 50MG TABLET PO PRN (20:54)
[2019-10-06] VITALS (10 sets, daily range): BP systolic 139–165; BP diastolic 87–108
--- NOTE | 2019-10-06 02:02 | NUR ---
SADI BENNETT - Fall Risk Medication(s) present and receiving anticoagulants.
[2019-10-06] MEDS: LORazepam 2 MG/ML, 1ML IV PRN ×2 (02:17→06:00)
[2019-10-06] MEDS: HYDROcodone/APAP 5/325 TABLET PO PRN ×4 (02:18→21:02)
[2019-10-06] MEDS: PIPERACILLIN/TAZO/PMX 3.375GM 50 ML IV SCH ×4 (03:49→21:02)
[2019-10-06] MEDS: LEVOTHYROXINE 100 MCG TABLET PO SCH (06:00)
[2019-10-06 07:33] LABS: ANION GAP 5 mmol/L (5-15); CALCIUM 8.6 mg/dL (8.5-10.1); CHLORIDE 111 mmol/L (98-107); CREATININE 0.91 mg/dL (0.7-1.3)
[2019-10-06] MEDS: MULTIVITAMINS/MINERALS TABLET PO SCH (09:27)
[2019-10-06] MEDS: BUPROPION SR 150 MG TABLET PO SCH (09:27)
[2019-10-06] MEDS: FAMOTIDINE 20 MG TABLET PO SCH ×2 (09:27→21:02)
[2019-10-06] MEDS: FOLIC ACID 1 MG TABLET PO SCH (09:27)
[2019-10-06] MEDS: FLUOXETINE HCL 20 MG CAPSULE PO SCH (09:27)
[2019-10-06] MEDS: LORazepam 0.5MG TABLET PO SCH ×3 (09:27→21:02)
[2019-10-06] MEDS: GABAPENTIN 300 MG CAPSULE PO SCH ×3 (09:27→21:02)
[2019-10-06] MEDS: LISINOPRIL 10 MG TABLET PO SCH (09:28)
[2019-10-06] MEDS: SENNA/DOCUSATE TABLET PO SCH (09:28)
[2019-10-06] MEDS: THIAMINE 100MG TABLET PO SCH (09:28)
[2019-10-06 09:56] LABS: BASOPHILS # (AUTO) 0.05 x10^3/uL (0-0.1); BASOPHILS % (AUTO) 1 % (0-1); EOSINOPHILS # (AUTO) 0.01 x10^3/uL (0-0.4); EOSINOPHILS % (AUTO) 0 % (1-7); LYMPHOCYTES # (AUTO) 1.51 x10^3/uL (1-3.4); LYMPHOCYTES % (AUTO) 15 % (22-44); MD NO; MEAN CORPUSCULAR HEMOGLOBIN 31.5 pg (27.5-34.5); MEAN CORPUSCULAR HGB CONC 33.3 g/dL (33.2-36.2); MEAN CORPUSCULAR VOLUME 94.7 fL (81-97); MEAN PLATELET VOLUME 6.8 fL (7.4-10.4); MONOCYTES # (AUTO) 0.73 x10^3/uL (0.2-0.8); MONOCYTES % (AUTO) 7 % (2-9); NEUTROPHILS # (AUTO) 8.09 x10^3/uL (1.8-6.8); NEUTROPHILS % (AUTO) 78 % (42-75); PLATELET COUNT 551 x10^3/uL (130-400); RED BLOOD COUNT 4.08 x10^6/uL (4.38-5.82)
[2019-10-06] MEDS: VANCOMYCIN 2,000 MG in SODIUM CHLORIDE 0.9% 500 ML IV SCH ×2 (11:25→23:37)
[2019-10-06] MEDS: ENOXAPARIN 40 MG/0.4 ML SQ SCH (15:51)
[2019-10-06] MEDS: NICOTINE 14MG/24 HR PATCH.TD24 TD SCH (15:52)
[2019-10-06] MEDS: TRAZODONE 50MG TABLET PO PRN (21:07)
[2019-10-07 01:34] VITALS: BP 154/101
[2019-10-07] MEDS: PIPERACILLIN/TAZO/PMX 3.375GM 50 ML IV SCH ×3 (03:28→16:05)
[2019-10-07 05:15] LABS: BASOPHILS # (AUTO) 0.04 x10^3/uL (0-0.1); BASOPHILS % (AUTO) 0 % (0-1); EOSINOPHILS # (AUTO) 0.08 x10^3/uL (0-0.4); EOSINOPHILS % (AUTO) 1 % (1-7); LYMPHOCYTES % (AUTO) 22 % (22-44); MD NO; MEAN CORPUSCULAR HEMOGLOBIN 31.2 pg (27.5-34.5); MEAN CORPUSCULAR VOLUME 94.5 fL (81-97); MEAN PLATELET VOLUME 7.8 fL (7.4-10.4); MONOCYTES # (AUTO) 0.86 x10^3/uL (0.2-0.8); MONOCYTES % (AUTO) 8 % (2-9); NEUTROPHILS # (AUTO) 7.01 x10^3/uL (1.8-6.8); NEUTROPHILS % (AUTO) 69 % (42-75); RED BLOOD COUNT 4.15 x10^6/uL (4.38-5.82); RED CELL DISTRIBUTION WIDTH 12.9 % (9.4-14.8)
[2019-10-07 05:22] LABS: HCT (SEDRATE) 39.2 % (39.2-51.8)
[2019-10-07 05:24] LABS: ANION GAP 7 mmol/L (5-15); C-REACTIVE PROTEIN, QUANT 0.43 mg/dL (0.02-0.49); CALCIUM 8.8 mg/dL (8.5-10.1); CHLORIDE 109 mmol/L (98-107); CREATININE 0.89 mg/dL (0.7-1.3)
[2019-10-07] MEDS: LEVOTHYROXINE 100 MCG TABLET PO SCH (06:03)
[2019-10-07 06:48] VITALS: BP 127/75
[2019-10-07] MEDS: FLUOXETINE HCL 20 MG CAPSULE PO SCH (09:08)
[2019-10-07] MEDS: GABAPENTIN 300 MG CAPSULE PO SCH ×2 (09:08→16:05)
[2019-10-07] MEDS: LORazepam 0.5MG TABLET PO SCH (09:08)
[2019-10-07] MEDS: FOLIC ACID 1 MG TABLET PO SCH (09:08)
[2019-10-07] MEDS: BUPROPION SR 150 MG TABLET PO SCH (09:08)
[2019-10-07] MEDS: FAMOTIDINE 20 MG TABLET PO SCH (09:08)
[2019-10-07] MEDS: THIAMINE 100MG TABLET PO SCH (09:09)
[2019-10-07] MEDS: SENNA/DOCUSATE TABLET PO SCH (09:09)
[2019-10-07] MEDS: LISINOPRIL 10 MG TABLET PO SCH (09:09)
[2019-10-07] MEDS: HYDROcodone/APAP 5/325 TABLET PO PRN ×2 (09:09→14:01)
[2019-10-07] MEDS: MULTIVITAMINS/MINERALS TABLET PO SCH (09:10)
[2019-10-07] MEDS: VANCOMYCIN 2,000 MG in SODIUM CHLORIDE 0.9% 500 ML IV SCH (12:52)
[2019-10-07 14:30] VITALS: BP 118/72
[2019-10-07] MEDS ORDERED: LORazepam 0.5MG TABLET PO PRN (14:30)
[2019-10-07] MEDS: NICOTINE 14MG/24 HR PATCH.TD24 TD SCH (16:05)
[2019-10-07] MEDS: ENOXAPARIN 40 MG/0.4 ML SQ SCH (16:05)
== END 2019-10-07 16:34 | disposition left against medical advice (07) | DRG 603 ==
LOC: ED 09:07 → EDIP 10:58 → 3N 11:59
PROVIDERS: ADMIT Hospitalist; ATTEND Hospitalist
DX: L03.116 Cellulitis of left lower limb (principal); F10.239 Alcohol dependence with withdrawal, unspecified; L03.115 Cellulitis of right lower limb; F12.10 Cannabis abuse, uncomplicated; I10 Essential (primary) hypertension; E03.9 Hypothyroidism, unspecified; F32.9 Major depressive disorder, single episode, unspecified; Z53.29 Procedure and treatment not carried out because of patient's decision for other reasons; D72.829 Elevated white blood cell count, unspecified; D64.9 Anemia, unspecified; F17.210 Nicotine dependence, cigarettes, uncomplicated; M65.9 Synovitis and tenosynovitis, unspecified; Y90.0 Blood alcohol level of less than 20 mg/100 ml; Z91.14 Patient's other noncompliance with medication regimen; Z90.89 Acquired absence of other organs; Z59.0 Homelessness; Z81.8 Family history of other mental and behavioral disorders
CPT/HCPCS: 36415; 71045; 80048; 80053; 80202; 80307; 83605; 83735; 83880; 84100; 84145; 84443; 85025; 85049; 85651; 86140; 87040; 99285; G0378; J0295; J1650; J2405; J2543; J3370; A9575; J2060; J7030; J7040; J7120

== ENCOUNTER 2019-10-08 04:17 | Inpatient (IN) | payer MEDICAID ==
[~2019-10-08] VITALS: Ht 193 cm; Wt 105.9 kg
[~2019-10-08 04:17] MED LIST changes: +FLUO40CA2 PO
[2019-10-08] MEDS ORDERED: PIPERACILLIN/TAZO/PMX 3.375GM 50 ML ONE ×2 (04:51→07:38)
[2019-10-08] MEDS ORDERED: SODIUM CHLORIDE FLUSH 10ML SYR IVF ONE (05:00)
[2019-10-08] MEDS ORDERED: VANCOMYCIN PER PHARMACY MC ONE (05:00)
[2019-10-08] MEDS ORDERED: PIPERACILLIN/TAZO/PMX 3.375GM 50 ML IVPB ONE (05:00)
--- NOTE | 2019-10-08 05:35 | NUR ---
LATE NOTE: PT TO ED WITH C/O OF WORSENING CELLULLITIS IN LEFT LOWER LEG. PT AMA YESTERDAY FROM FLOOR. REPORTS HE WANTED TO USE HEROIN, USED APPX 3 HRS AGO AND IS BACK TO ED SEEKING TX. PT SOMNOLENT. MONITORING IN PLACE, IV PLACED, MEDICATED PER JUL. CALL LIGHT WITHIN REACH, X2 RAILS RAISED.
[2019-10-08 05:45] LABS: ALBUMIN 3.1 g/dL (3.4-5.0); ANION GAP 9 mmol/L (5-15); CHLORIDE 105 mmol/L (98-107); CREATININE 1.75 mg/dL (0.7-1.3)
[2019-10-08 06:22] LABS: MEAN CORPUSCULAR HEMOGLOBIN 31.4 pg (27.5-34.5); MEAN CORPUSCULAR HGB CONC 33.1 g/dL (33.2-36.2); MEAN PLATELET VOLUME 6.8 fL (7.4-10.4); PLATELET COUNT 492 x10^3/uL (130-400); RED BLOOD COUNT 3.95 x10^6/uL (4.38-5.82); RED CELL DISTRIBUTION WIDTH 13.1 % (9.4-14.8)
[2019-10-08 06:47] LABS: BASOPHILS # (AUTO) 0.21 x10^3/uL (0-0.1); BASOPHILS % (AUTO) 1 % (0-1); EOSINOPHILS # (AUTO) 0.02 x10^3/uL (0-0.4); EOSINOPHILS % (AUTO) 0 % (1-7); LYMPHOCYTES # (AUTO) 1.93 x10^3/uL (1-3.4); LYMPHOCYTES % (AUTO) 12 % (22-44); MD SCAN; MONOCYTES % (AUTO) 7 % (2-9); NEUTROPHILS # (AUTO) 13.23 x10^3/uL (1.8-6.8); NEUTROPHILS % (AUTO) 80 % (42-75)
--- NOTE | 2019-10-08 06:57 | NUR ---
REPORT TO MALKA NORMAN.
[2019-10-08] MEDS ORDERED: VANCOMYCIN 2,500 MG in SODIUM CHLORIDE 0.9% 500 ML IV ONE (07:00)
[2019-10-08] MEDS ORDERED: [UNRECOGNIZED DRUG - REMARK] MC SCH (07:00)
--- NOTE | 2019-10-08 07:06 | NUR ---
[facility] BEDSIDE HAND-OFF REPORT RECEIVED FROM RN ABEL. ASSUMING CARE OF PATIENT.
[2019-10-08] MEDS ORDERED: LORazepam 1MG TABLET PO PRN ×3 (07:30)
[2019-10-08] MEDS ORDERED: VANCOMYCIN PER PHARMACY MC PRN (07:30)
[2019-10-08] MEDS ORDERED: ONDANSETRON ODT 4 MG PO PRN (07:30)
[2019-10-08] MEDS ORDERED: PHARMACY INSTRUCTION MC PRN (07:30)
[2019-10-08] MEDS ORDERED: POLYETHYLENE GLYCOL 17 GM PACKET PO PRN (07:30)
[2019-10-08] MEDS ORDERED: DOCUSATE 100 MG CAPSULE PO PRN (07:30)
[2019-10-08] MEDS ORDERED: IBUPROFEN 600 MG TABLET PO PRN (07:30)
[2019-10-08] MEDS ORDERED: ACETAMINOPHEN 325 MG TABLET PO PRN (07:30)
[2019-10-08] MEDS ORDERED: HEPARIN 5,000 UNITS/ML, 1ML ONE (07:39)
[2019-10-08] MEDS: PIPERACILLIN/TAZO/PMX 3.375GM 50 ML IV SCH ×3 (07:44→21:09)
[2019-10-08] MEDS ORDERED: NICOTINE 21 MG/24 HR PATCH.TD24 ONE (07:46)
[2019-10-08] MEDS: HEPARIN 5,000 UNITS/ML, 1ML SQ SCH ×3 (07:49→23:30)
[2019-10-08] MEDS: NICOTINE 21 MG/24 HR PATCH.TD24 TD SCH (07:49)
[2019-10-08] MEDS ORDERED: PHARMACOKINETIC MONITORING MC PRN (08:00)
[2019-10-08] MEDS ORDERED: PHARMACOKINETIC CONSULTATION MC ONE (08:00)
--- NOTE | 2019-10-08 08:10 | NUR ---
[facility] TELEPHONE HAND-OFF REPORT GIVEN TO MALKA ELLIOTT. PT READY TO GO TO HOSPITAL ROOM. BREAKFAST SERVED TO PATIENT.
[2019-10-08 08:35] LABS: HCT (SEDRATE) 37.6 % (39.2-51.8)
[2019-10-08 10:02] VITALS: BP 98/63
[2019-10-08] MEDS: ONDANSETRON 2MG/ML, 2ML IVPush PRN ×2 (10:40→12:18)
[2019-10-08] MEDS: SODIUM CHLORIDE 0.9% 1,000 ML IV SCH ×2 (10:40→21:09)
[2019-10-08] MEDS: GABAPENTIN 300 MG CAPSULE PO SCH ×3 (12:17→21:09)
[2019-10-08] MEDS: BUPROPION SR 150 MG TABLET PO SCH ×2 (12:17→21:10)
[2019-10-08] MEDS: FLUOXETINE HCL 20 MG CAPSULE PO SCH (12:17)
[2019-10-08] MEDS: FOLIC ACID 1 MG TABLET PO SCH (12:17)
[2019-10-08] MEDS: MULTIVITAMIN 1 TABLET PO SCH (12:17)
[2019-10-08 12:39] VITALS: BP 122/72
[2019-10-08 20:55] VITALS: BP 137/82
[2019-10-08] MEDS: TRAZODONE 50MG TABLET PO PRN (21:18)
[2019-10-08] MEDS: THIAMINE 100MG TABLET PO SCH (21:18)
[2019-10-09 00:31] VITALS: BP 132/75
[2019-10-09 05:06] LABS: ALBUMIN 2.4 g/dL (3.4-5.0); ANION GAP 8 mmol/L (5-15); CALCIUM 8.3 mg/dL (8.5-10.1); CHLORIDE 111 mmol/L (98-107)
[2019-10-09 05:10] LABS: ALANINE AMINOTRANSFERASE 50 U/L (12-78); ALKALINE PHOSPHATASE 47 U/L (45-117); BILIRUBIN,TOTAL 0.3 mg/dL (0.2-1.0); CREATININE 0.99 mg/dL (0.7-1.3); TOTAL PROTEIN 6.8 g/dL (6.4-8.2)
[2019-10-09] MEDS: SODIUM CHLORIDE 0.9% 1,000 ML IV SCH ×3 (05:49→20:26)
[2019-10-09] MEDS: PIPERACILLIN/TAZO/PMX 3.375GM 50 ML IV SCH ×3 (05:49→21:12)
[2019-10-09] MEDS: LEVOTHYROXINE 100 MCG TABLET PO SCH (05:49)
[2019-10-09] MEDS: HEPARIN 5,000 UNITS/ML, 1ML SQ SCH ×3 (07:30→23:06)
[2019-10-09 07:37] VITALS: BP 131/82
[2019-10-09] MEDS: THIAMINE 100MG TABLET PO SCH (09:00)
[2019-10-09] MEDS: NICOTINE 21 MG/24 HR PATCH.TD24 TD SCH (09:00)
[2019-10-09] MEDS: BUPROPION SR 150 MG TABLET PO SCH ×2 (09:00→17:48)
[2019-10-09] MEDS: FLUOXETINE HCL 20 MG CAPSULE PO SCH (09:00)
[2019-10-09] MEDS: MULTIVITAMIN 1 TABLET PO SCH (09:00)
[2019-10-09] MEDS ORDERED: VANCOMYCIN 2,000 MG in SODIUM CHLORIDE 0.9% 500 ML IV SCH (09:00)
[2019-10-09] MEDS: FOLIC ACID 1 MG TABLET PO SCH (09:00)
[2019-10-09] MEDS: GABAPENTIN 300 MG CAPSULE PO SCH ×3 (09:00→20:26)
[2019-10-09] MEDS: BUPRENORPHINE/NALOXONE 8-2MG SL SCH (09:00)
[2019-10-09 09:09] LABS: BASOPHILS # (AUTO) 0.03 x10^3/uL (0-0.1); BASOPHILS % (AUTO) 0 % (0-1); EOSINOPHILS % (AUTO) 1 % (1-7); LYMPHOCYTES # (AUTO) 1.69 x10^3/uL (1-3.4); LYMPHOCYTES % (AUTO) 18 % (22-44); MD NO; MEAN CORPUSCULAR HEMOGLOBIN 31.4 pg (27.5-34.5); MEAN CORPUSCULAR HGB CONC 32.9 g/dL (33.2-36.2); MEAN CORPUSCULAR VOLUME 95.5 fL (81-97); MONOCYTES # (AUTO) 0.63 x10^3/uL (0.2-0.8); MONOCYTES % (AUTO) 7 % (2-9); NEUTROPHILS % (AUTO) 75 % (42-75); PLATELET COUNT 410 x10^3/uL (130-400); RED BLOOD COUNT 4.34 x10^6/uL (4.38-5.82); RED CELL DISTRIBUTION WIDTH 13.2 % (9.4-14.8)
[2019-10-09] MEDS: LORazepam 0.5MG TABLET PO PRN ×3 (09:16→20:26)
[2019-10-09 13:57] VITALS: BP 121/74
[2019-10-09] MEDS: VANCOMYCIN 2,000 MG in SODIUM CHLORIDE 0.9% 500 ML IV SCH (17:48)
[2019-10-09 20:04] VITALS: BP 136/83
[2019-10-09] MEDS: TRAZODONE 50MG TABLET PO PRN (20:26)
[2019-10-10 00:16] VITALS: BP 148/90
[2019-10-10] MEDS: SODIUM CHLORIDE 0.9% 1,000 ML IV SCH ×2 (04:49→12:58)
[2019-10-10] MEDS: PIPERACILLIN/TAZO/PMX 3.375GM 50 ML IV SCH ×4 (04:49→23:41)
[2019-10-10 04:50] LABS: BASOPHILS # (AUTO) 0.09 x10^3/uL (0-0.1); BASOPHILS % (AUTO) 1 % (0-1); EOSINOPHILS # (AUTO) 0.18 x10^3/uL (0-0.4); EOSINOPHILS % (AUTO) 2 % (1-7); LYMPHOCYTES # (AUTO) 2.23 x10^3/uL (1-3.4); LYMPHOCYTES % (AUTO) 22 % (22-44); MD NO; MEAN CORPUSCULAR HEMOGLOBIN 31.7 pg (27.5-34.5); MEAN CORPUSCULAR HGB CONC 33.3 g/dL (33.2-36.2); MEAN CORPUSCULAR VOLUME 95.1 fL (81-97); MEAN PLATELET VOLUME 7.4 fL (7.4-10.4); MONOCYTES % (AUTO) 8 % (2-9); NEUTROPHILS # (AUTO) 6.76 x10^3/uL (1.8-6.8); NEUTROPHILS % (AUTO) 67 % (42-75); PLATELET COUNT 403 x10^3/uL (130-400); RED BLOOD COUNT 4.13 x10^6/uL (4.38-5.82)
[2019-10-10 05:09] LABS: CHLORIDE 108 mmol/L (98-107)
[2019-10-10 05:14] LABS: ALANINE AMINOTRANSFERASE 63 U/L (12-78); ALBUMIN 2.5 g/dL (3.4-5.0); ALKALINE PHOSPHATASE 47 U/L (45-117); ANION GAP 9 mmol/L (5-15); BILIRUBIN,TOTAL 0.3 mg/dL (0.2-1.0); CALCIUM 8.7 mg/dL (8.5-10.1); CREATININE 0.92 mg/dL (0.7-1.3); TOTAL PROTEIN 7.2 g/dL (6.4-8.2)
[2019-10-10] MEDS: VANCOMYCIN 2,000 MG in SODIUM CHLORIDE 0.9% 500 ML IV SCH ×3 (06:08→21:30)
[2019-10-10] MEDS: BUPROPION SR 150 MG TABLET PO SCH ×2 (06:08→17:11)
[2019-10-10] MEDS: LEVOTHYROXINE 100 MCG TABLET PO SCH (06:08)
[2019-10-10] MEDS: LORazepam 0.5MG TABLET PO PRN ×4 (06:12→22:27)
[2019-10-10 06:35] LABS: HCT (SEDRATE) 39.3 % (39.2-51.8)
[2019-10-10 06:45] VITALS: BP 154/92
[2019-10-10] MEDS: HEPARIN 5,000 UNITS/ML, 1ML SQ SCH ×3 (07:00→23:30)
[2019-10-10] MEDS: MULTIVITAMIN 1 TABLET PO SCH (09:34)
[2019-10-10] MEDS: THIAMINE 100MG TABLET PO SCH (09:34)
[2019-10-10] MEDS: FLUOXETINE HCL 20 MG CAPSULE PO SCH (09:34)
[2019-10-10] MEDS: GABAPENTIN 300 MG CAPSULE PO SCH ×3 (09:34→20:02)
[2019-10-10] MEDS: FOLIC ACID 1 MG TABLET PO SCH (09:34)
[2019-10-10] MEDS: BUPRENORPHINE/NALOXONE 8-2MG SL SCH (09:34)
[2019-10-10] MEDS: NICOTINE 21 MG/24 HR PATCH.TD24 TD SCH (09:36)
[2019-10-10 15:22] VITALS: BP 114/70
[2019-10-10 19:22] VITALS: BP 183/109
[2019-10-10] MEDS ORDERED: hydrALAzine 20 MG/ML, 1ML IV PRN ×2 (19:30→23:30)
[2019-10-10] MEDS: hydrALAzine 20 MG/ML, 1ML IV PRN (21:27)
[2019-10-11] MEDS: hydrALAzine 20 MG/ML, 1ML IV PRN (01:43)
[2019-10-11 01:47] VITALS: BP 176/108
[2019-10-11 02:07] VITALS: BP 148/90
[2019-10-11 05:04] LABS: HCT (SEDRATE) 42.9 % (39.2-51.8)
[2019-10-11 05:16] LABS: ANION GAP 6 mmol/L (5-15); C-REACTIVE PROTEIN, QUANT 0.15 mg/dL (0.02-0.49); CALCIUM 8.8 mg/dL (8.5-10.1); CHLORIDE 106 mmol/L (98-107); CREATININE 1.03 mg/dL (0.7-1.3)
[2019-10-11] MEDS: BUPROPION SR 150 MG TABLET PO SCH ×2 (05:22→18:04)
[2019-10-11] MEDS: LORazepam 0.5MG TABLET PO PRN ×3 (05:22→20:15)
[2019-10-11] MEDS: LEVOTHYROXINE 100 MCG TABLET PO SCH (05:22)
[2019-10-11 06:30] VITALS: BP 160/113
[2019-10-11] MEDS: HEPARIN 5,000 UNITS/ML, 1ML SQ SCH ×3 (06:42→23:38)
[2019-10-11 07:24] LABS: BASOPHILS # (AUTO) 0.11 x10^3/uL (0-0.1); BASOPHILS % (AUTO) 1 % (0-1); EOSINOPHILS % (AUTO) 0 % (1-7); LYMPHOCYTES # (AUTO) 1.71 x10^3/uL (1-3.4); LYMPHOCYTES % (AUTO) 13 % (22-44); MD NO; MEAN CORPUSCULAR HEMOGLOBIN 31.6 pg (27.5-34.5); MEAN CORPUSCULAR HGB CONC 33.7 g/dL (33.2-36.2); MEAN PLATELET VOLUME 7.3 fL (7.4-10.4); MONOCYTES # (AUTO) 0.78 x10^3/uL (0.2-0.8); MONOCYTES % (AUTO) 6 % (2-9); NEUTROPHILS # (AUTO) 10.81 x10^3/uL (1.8-6.8); NEUTROPHILS % (AUTO) 81 % (42-75); PLATELET COUNT 502 x10^3/uL (130-400); RED BLOOD COUNT 4.52 x10^6/uL (4.38-5.82); RED CELL DISTRIBUTION WIDTH 12.9 % (9.4-14.8)
[2019-10-11] MEDS: GABAPENTIN 300 MG CAPSULE PO SCH ×3 (08:21→20:15)
[2019-10-11] MEDS: FLUOXETINE HCL 20 MG CAPSULE PO SCH (08:21)
[2019-10-11] MEDS: PIPERACILLIN/TAZO/PMX 3.375GM 50 ML IV SCH ×3 (08:21→23:31)
[2019-10-11] MEDS: FOLIC ACID 1 MG TABLET PO SCH (08:21)
[2019-10-11] MEDS: THIAMINE 100MG TABLET PO SCH (08:21)
[2019-10-11] MEDS: MULTIVITAMIN 1 TABLET PO SCH (08:21)
[2019-10-11] MEDS: BUPRENORPHINE/NALOXONE 8-2MG SL SCH (08:22)
[2019-10-11] MEDS: NICOTINE 21 MG/24 HR PATCH.TD24 TD SCH (08:23)
[2019-10-11] MEDS: VANCOMYCIN 2,000 MG in SODIUM CHLORIDE 0.9% 500 ML IV SCH (11:31)
[2019-10-11 13:21] VITALS: BP 168/103
[2019-10-11] MEDS: VANCOMYCIN 2,100 MG in SODIUM CHLORIDE 0.9% 500 ML IV SCH (18:04)
[2019-10-11 18:39] VITALS: BP 155/108
[2019-10-11] MEDS: TRAZODONE 50MG TABLET PO PRN (23:31)
[2019-10-12 01:08] VITALS: BP 128/78
[2019-10-12] MEDS: VANCOMYCIN 2,100 MG in SODIUM CHLORIDE 0.9% 500 ML IV SCH ×2 (02:20→10:47)
[2019-10-12] MEDS: LEVOTHYROXINE 100 MCG TABLET PO SCH (05:29)
[2019-10-12] MEDS: BUPROPION SR 150 MG TABLET PO SCH (05:29)
[2019-10-12 05:51] LABS: ANION GAP 6 mmol/L (5-15); CALCIUM 9.1 mg/dL (8.5-10.1); CHLORIDE 108 mmol/L (98-107)
[2019-10-12 05:55] LABS: CREATININE 0.92 mg/dL (0.7-1.3)
[2019-10-12 07:04] VITALS: BP 119/76
[2019-10-12] MEDS: HEPARIN 5,000 UNITS/ML, 1ML SQ SCH ×2 (07:18→15:30)
[2019-10-12 07:33] LABS: BASOPHILS # (AUTO) 0.06 x10^3/uL (0-0.1); BASOPHILS % (AUTO) 1 % (0-1); EOSINOPHILS # (AUTO) 0.09 x10^3/uL (0-0.4); EOSINOPHILS % (AUTO) 1 % (1-7); LYMPHOCYTES # (AUTO) 2.04 x10^3/uL (1-3.4); LYMPHOCYTES % (AUTO) 28 % (22-44); MD NO; MEAN CORPUSCULAR HEMOGLOBIN 31.6 pg (27.5-34.5); MEAN CORPUSCULAR HGB CONC 32.9 g/dL (33.2-36.2); MEAN CORPUSCULAR VOLUME 96.1 fL (81-97); MONOCYTES # (AUTO) 0.76 x10^3/uL (0.2-0.8); MONOCYTES % (AUTO) 10 % (2-9); NEUTROPHILS % (AUTO) 60 % (42-75); PLATELET COUNT 446 x10^3/uL (130-400); RED BLOOD COUNT 4.69 x10^6/uL (4.38-5.82); RED CELL DISTRIBUTION WIDTH 13.6 % (9.4-14.8)
[2019-10-12 07:54] LABS: HCT (SEDRATE) 45.1 % (39.2-51.8)
[2019-10-12] MEDS: FOLIC ACID 1 MG TABLET PO SCH (08:00)
[2019-10-12] MEDS: MULTIVITAMIN 1 TABLET PO SCH (08:00)
[2019-10-12] MEDS: BUPRENORPHINE/NALOXONE 8-2MG SL SCH (08:01)
[2019-10-12] MEDS: PIPERACILLIN/TAZO/PMX 3.375GM 50 ML IV SCH (08:01)
[2019-10-12] MEDS: THIAMINE 100MG TABLET PO SCH (08:01)
[2019-10-12] MEDS: FLUOXETINE HCL 20 MG CAPSULE PO SCH (08:01)
[2019-10-12] MEDS: GABAPENTIN 300 MG CAPSULE PO SCH ×2 (08:01→16:02)
[2019-10-12] MEDS: NICOTINE 21 MG/24 HR PATCH.TD24 TD SCH (08:07)
[2019-10-12] MEDS ORDERED: AMOXICILLIN/CLAV 875-125MG TABLET PO SCH (12:00)
[2019-10-12] MEDS ORDERED: DOXYCYCLINE 100MG CAP PO SCH (12:00)
[2019-10-12 12:49] VITALS: BP 114/73
[2019-10-12] MEDS: LORazepam 0.5MG TABLET PO PRN (16:01)
[2019-10-12] MEDS ORDERED: DOXY100C2 PO (17:28)
[2019-10-12] MEDS ORDERED: AMOX1TAB12 PO (17:28)
[2019-10-12] MEDS ORDERED: VANCOMYCIN 2,100 MG in SODIUM CHLORIDE 0.9% 500 ML IV SCH (23:00)
== END 2019-10-12 17:31 | disposition left against medical advice (07) | DRG 872 ==
LOC: ED 05:21 → EDIP 06:07 → 3N 06:49
PROVIDERS: ADMIT Family Medicine; ATTEND Hospitalist
DX: A41.9 Sepsis, unspecified organism (principal); L03.116 Cellulitis of left lower limb; N17.9 Acute kidney failure, unspecified; E03.9 Hypothyroidism, unspecified; F11.10 Opioid abuse, uncomplicated; F17.210 Nicotine dependence, cigarettes, uncomplicated; F32.9 Major depressive disorder, single episode, unspecified; F41.1 Generalized anxiety disorder; I10 Essential (primary) hypertension; M65.9 Synovitis and tenosynovitis, unspecified; R26.2 Difficulty in walking, not elsewhere classified; Z53.29 Procedure and treatment not carried out because of patient's decision for other reasons; Z59.0 Homelessness; Z63.8 Other specified problems related to primary support group; Z91.19 Patient's noncompliance with other medical treatment and regimen; Z90.89 Acquired absence of other organs
CPT/HCPCS: 36415; 73564; 96365; 96375; 99285; J0574; 80048; 80053; 80202; 82040; 85025; 85651; 86140; 93970; G0378; J1644; J2405; J2543; J3370; J0360; J7030; J7040